=== PATIENT | female | born 1965 | race Caucasian/White ===

== ENCOUNTER → 2020-03-13 15:34 | Outpatient (BNVA) | payer BC, SELFPAY | PROVIDERS: Family Provider Nurse Practitioner Family; PCP Registered Nurse; Visit Provider Podiatrist Public Medicine | DX: Z20.828 Contact with and (suspected) exposure to other viral communicable diseases (principal) | CPT/HCPCS: 87635 ==

== ENCOUNTER → 2020-05-16 09:24 | Outpatient (BNVA) | payer SELFPAY | PROVIDERS: Family Provider Nurse Practitioner Family; PCP Registered Nurse; Visit Provider Registered Nurse | DX: R10.9 Unspecified abdominal pain (principal); N39.0 Urinary tract infection, site not specified; A49.9 Bacterial infection, unspecified; B37.3 Candidiasis of vulva and vagina | CPT/HCPCS: 81000 ==

== ENCOUNTER → 2020-05-19 11:29 | Outpatient (BNVA) | payer OTHER, SELFPAY | PROVIDERS: Family Provider Nurse Practitioner Family; PCP Registered Nurse; Visit Provider Registered Nurse | DX: N39.0 Urinary tract infection, site not specified (principal); A49.9 Bacterial infection, unspecified | CPT/HCPCS: 81000; 87086 ==

== ENCOUNTER 2020-06-28 10:53 | Outpatient (CLI) | payer OTHER, SELFPAY ==
--- NOTE | 2020-06-28 11:00 | XR_ITS ---
WS: [id number] KUB, 06/28/2020 Clinical Data: N30.21 - Other chronic cystitis with hematuria Comparison: None. Findings: No abnormal intraabdominal masses or calcifications are seen. There is no dilatated small bowel or ev idence of obstruction. There is a moderate amount of fecal material throughout the ascending and transverse colons. XR/XR KUB [id number] Impression: Moderate amount of fecal material in the colon.
== END 2020-06-28 10:54 | disposition home or self-care (01) ==
LOC: RAD 11:00
PROVIDERS: PCP Registered Nurse; Visit Provider Registered Nurse
DX: N30.21 Other chronic cystitis with hematuria (principal)
CPT/HCPCS: 74018; 81000; 87086; 88112

== ENCOUNTER → 2020-07-24 13:49 | Outpatient (BNVA) | payer OTHER, SELFPAY | PROVIDERS: PCP Registered Nurse; Referring Provider Registered Nurse; Visit Provider Nurse Practitioner Family | DX: A49.9 Bacterial infection, unspecified (principal); N30.20 Other chronic cystitis without hematuria | CPT/HCPCS: 81003 ==

== ENCOUNTER → 2020-08-29 16:05 | Outpatient (BNVA) | payer OTHER, SELFPAY | PROVIDERS: PCP Registered Nurse; Visit Provider Urology | DX: N30.20 Other chronic cystitis without hematuria (principal) | CPT/HCPCS: 87086 ==

== ENCOUNTER → 2020-09-05 14:29 | Outpatient (BNVA) | payer OTHER, SELFPAY | PROVIDERS: PCP Registered Nurse; Visit Provider Urology | DX: N30.20 Other chronic cystitis without hematuria (principal) | CPT/HCPCS: 81003 ==

== ENCOUNTER → 2020-11-07 12:48 | Outpatient (BNVA) | payer OTHER, SELFPAY | PROVIDERS: PCP Registered Nurse; Visit Provider Urology | DX: N30.20 Other chronic cystitis without hematuria (principal) | CPT/HCPCS: 81003 ==

== ENCOUNTER → 2021-02-12 10:06 | Outpatient (BNVA) | payer OTHER, SELFPAY | PROVIDERS: PCP Registered Nurse; Visit Provider Urology | DX: N30.20 Other chronic cystitis without hematuria (principal) | CPT/HCPCS: 81003 ==

== ENCOUNTER → 2021-07-20 09:17 | Outpatient (BNVA) | payer OTHER, SELFPAY | PROVIDERS: PCP Registered Nurse; Visit Provider Nurse Practitioner Family | DX: N39.0 Urinary tract infection, site not specified (principal); A49.9 Bacterial infection, unspecified | CPT/HCPCS: 81003 ==

== ENCOUNTER 2021-09-04 14:15 | Outpatient (CLI) | payer OTHER, SELFPAY ==
--- NOTE | 2021-09-04 14:22 | XRR_ITS ---
PROCEDURE INFORMATION: Exam: XR Lumbosacral Spine Exam date and time: 09/04/2021 2:28 PM Age: 56 years old Clinical indication: Low back pain; Additional info: M54.50 - low back pain, unspecified TECHNIQUE: Imaging protocol: XR of the lumbosacral spine. Views: 2 or 3 views. COMPARISON: CR XR KUB [id number] 06/28/2020 11:15 AM FINDINGS: Bones/joints: Multilevel degenerative disc disease most prominent at L4-L5. Facet arthropathy at L5-S1. Vertebral body heights are maintained. Soft tissues: Unremarkable. Vasculature: Vascular calcifications. XR/XR lumbar spine 2-3V* [id number] IMPRESSION: No acute abnormality.
== END 2021-09-04 14:16 | disposition home or self-care (01) ==
LOC: RAD 14:17
PROVIDERS: PCP Registered Nurse; Visit Provider Registered Nurse
DX: M54.50 Low back pain, unspecified (principal); S20.369A Insect bite (nonvenomous) of unspecified front wall of thorax, initial encounter; W57.XXXA Bitten or stung by nonvenomous insect and other nonvenomous arthropods, initial encounter
CPT/HCPCS: 72100; 85025; 86618; 86666; 86757

== ENCOUNTER → 2021-11-15 09:53 | Outpatient (BNVA) | payer OTHER, SELFPAY | PROVIDERS: PCP Registered Nurse; Visit Provider Nurse Practitioner Family | DX: W57.XXXA Bitten or stung by nonvenomous insect and other nonvenomous arthropods, initial encounter (principal); R50.9 Fever, unspecified | CPT/HCPCS: 80048; 84443; 85025; 85651; 86140; 86618; 86666; 86757 ==

== ENCOUNTER → 2021-11-22 13:40 | Outpatient (BNVA) | payer OTHER, SELFPAY | PROVIDERS: PCP Registered Nurse; Visit Provider Nurse Practitioner Family | DX: N30.20 Other chronic cystitis without hematuria (principal) | CPT/HCPCS: 81003 ==

== ENCOUNTER → 2022-03-04 15:20 | Outpatient (BNVA) | payer OTHER, SELFPAY | PROVIDERS: PCP Registered Nurse; Visit Provider Urology | DX: N30.20 Other chronic cystitis without hematuria (principal) | CPT/HCPCS: 81003 ==

== ENCOUNTER → 2022-03-11 08:26 | Outpatient (BNVA) | payer OTHER, SELFPAY | PROVIDERS: PCP Registered Nurse; Visit Provider Registered Nurse | DX: R68.89 Other general symptoms and signs (principal) | CPT/HCPCS: 87400 ==

== ENCOUNTER → 2022-09-02 15:14 | Outpatient (BNVA) | payer OTHER, SELFPAY | PROVIDERS: PCP Registered Nurse; Visit Provider Urology | DX: N30.20 Other chronic cystitis without hematuria (principal) | CPT/HCPCS: 81003 ==

== ENCOUNTER → 2022-10-10 10:15 | Outpatient (BNVA) | payer OTHER, SELFPAY | PROVIDERS: PCP Registered Nurse; Visit Provider Family Medicine | DX: N30.20 Other chronic cystitis without hematuria (principal); Z76.89 Persons encountering health services in other specified circumstances | CPT/HCPCS: 80053; 80061; 81003; 85025 ==

== ENCOUNTER → 2022-11-06 10:45 | Outpatient (BNVA) | payer OTHER, SELFPAY | PROVIDERS: PCP Family Medicine; Visit Provider Nurse Practitioner Women's Health | DX: Z12.4 Encounter for screening for malignant neoplasm of cervix (principal) | CPT/HCPCS: 87624 ==

== ENCOUNTER 2023-12-23 10:42 | Outpatient (CLI) | payer OTHER, SELFPAY ==
--- NOTE | 2023-12-23 10:44 | MM_ITS ---
WS: [id number] BILATERAL 3D TOMOSYNTHESIS DIGITAL SCREENING MAMMOGRAPHY WITH CAD CLINICAL INFORMATION: SCREENING HISTORY: Screening mammogram. No current complaints. COMPARISON: 2022 TECHNIQUE: Bilateral CC and MLO views. FINDINGS: Scattered fibroglandular densities bilaterally. No suspicious focal mass, asymmetry, calcifications, or architectural distortion. No evidence of malignancy. Bilateral breast implants appear intact. MM/MM scr tomosynthesis [id number] IMPRESSION: DENSITY: There are scattered areas of fibroglandular density. BI-RADS: 2 - Benign. FOLLOW UP: 1 Year Follow-up Recommend return to annual screening mammography.
== END 2023-12-23 10:43 | disposition home or self-care (01) ==
LOC: RAD 10:43
PROVIDERS: PCP Family Medicine; Visit Provider Nurse Practitioner Women's Health
DX: Z12.31 Encounter for screening mammogram for malignant neoplasm of breast (principal); R92.323 Mammographic fibroglandular density, bilateral breasts; Z98.82 Breast implant status
CPT/HCPCS: 77063; 77067

== ENCOUNTER 2024-01-05 17:07 | Emergency (ER) | payer OTHER, SELFPAY ==
[2024-01-05 17:14] VITALS: BP 157/94; PULSE 71; RESP 20; TEMP 36.6; O2SAT 100; BMI 26.6
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
[2024-01-05 17:33] LABS: Basophils % 0.6 %; Eosinophils # 0.1 10^3/uL (0.0-0.8); Eosinophils % 1.1 %; Hematocrit 45.9 % (36-47); Lymphocytes # 1.8 10^3/uL (0.8-4.8); Lymphocytes % 24.2 %; Mean Corpuscular HGB Conc 33.1 g/dL (30-55); Mean Corpuscular Hemoglobin 30.2 pg (27-33); Mean Corpuscular Volume 91.3 fl (85-98); Mean Platelet Volume 11.2 fL (7.4-10.4); Monocytes # 0.5 10^3/uL (0.2-0.9); Monocytes % 7.1 %; Neutrophils # 4.82 10^3/uL (1.8-7.7); Neutrophils % 66.7 %; Nucleated Red Blood Cells % 0 %; Platelet Count 253 10^3/cmm (157-399); Red Blood Count 5.03 10^6/uL (3.85-5.65); Red Cell Distribution Width 12.3 % (12.1-15.1); White Blood Count 7.22 10^3/uL (3.29-11.43)
[2024-01-05 17:55] LABS: Alanine Aminotransferase 15 U/L (0-33); Albumin Level 4.2 g/dL (3.5-5.2); Alkaline Phosphatase 94 U/L (35-105); Anion Gap 13.7 (5-19); Aspartate Amino Transferase 15 U/L (0-32); Blood Urea Nitrogen 15 mg/dL (6-20); Calcium 8.8 mg/dL (8.5-10.5); Carbon Dioxide 25 mmol/L (22-29); Chloride 103 mmol/L (98-107); Creatinine Clr Calc Pharmacy 77.8519; Globulin 2.7 g/dL (1.3-4.6); Glomerular Filtration Rate 64.3 mL/min (90-130); Glucose 134 mg/dL (65-115); Osmolality Calculated 287 mOsm/kg (285-295); Potassium 4.7 mmol/L (3.5-5.1); Sodium 137 mmol/L (136-145); Total Bilirubin 0.4 mg/dL (0.15-1.2); Total Protein 6.9 g/dL (6.6-8.7)
[2024-01-05 17:56] LABS: Lactic Sepsis W/Reflex 1.8 mmol/L (0.5-2.2)
[2024-01-05] MEDS: iohexol 350 mg/mL 500 mL Btl (per mL) IV (18:06)
[2024-01-05] MEDS: orphenadrine 30 mg/mL Inj 2 mL 60 MG IVP (18:13)
[2024-01-05] MEDS: ondansetron 2 mg/ML SDV 2 mL 8 MG IVP (18:14)
[2024-01-05] MEDS: ketorolac 30 mg/mL INJ IVP (18:17)
[2024-01-05 19:30] VITALS: BP 134/74; PULSE 68; O2SAT 96
--- NOTE | 2024-01-05 19:32 | NUR.SHIFT ---
C-collar removed per Dr. Grover.
[2024-01-05] MEDS: HYDROcodone-acetaminophen 5-325 mg Tablet 2 TAB PO (19:56)
[2024-01-05] MEDS: ondansetron 4 MG Tablet 8 MG PO (19:57)
[2024-01-05 19:58] VITALS: RESP 18
[2024-01-05] MEDS: HYDROmorphone 1 mg/mL INJ 1 mL IVP (19:58)
[2024-01-05 20:17] VITALS: BP 123/65; PULSE 71; O2SAT 96
--- NOTE | 2024-01-05 20:18 | PC.NURSE ---
Pt sent home with 2 hydrocodone 5-325 and 2 tabs of zofran per Dr. Grover.
== END 2024-01-05 20:21 | disposition home or self-care (01) ==
PROVIDERS: Emergency Provider Emergency Medicine; PCP Family Medicine
DX: S16.1XXA Strain of muscle, fascia and tendon at neck level, initial encounter (principal); S39.012A Strain of muscle, fascia and tendon of lower back, initial encounter; Z87.891 Personal history of nicotine dependence; V89.2XXA Person injured in unspecified motor-vehicle accident, traffic, initial encounter
CPT/HCPCS: 70450; 71260; 72125; 72128; 72131; 74177; 80053; 83605; 85025; 96374; 96375; 99285; J1170; J1885; J2360; J2405; Q0162

== ENCOUNTER → 2024-05-05 11:06 | Outpatient (BNVA) | payer OTHER, SELFPAY | PROVIDERS: PCP Family Medicine; Visit Provider Registered Nurse | DX: J11.1 Influenza due to unidentified influenza virus with other respiratory manifestations (principal); J01.40 Acute pansinusitis, unspecified | CPT/HCPCS: 87400 ==

== ENCOUNTER → 2024-05-12 14:50 | Outpatient (BNVA) | payer OTHER, SELFPAY | PROVIDERS: PCP Family Medicine; Visit Provider Nurse Practitioner Women's Health | DX: E28.319 Asymptomatic premature menopause (principal) | CPT/HCPCS: 82306 ==

== ENCOUNTER 2024-05-25 12:56 | Outpatient (CLI) | payer OTHER, SELFPAY ==
--- NOTE | 2024-05-25 14:00 | XR_ITS ---
WS: [id number] SCREENING DEXA SCAN [employer] CLINICAL INFORMATION: E28.319 - Asymptomatic premature menopause COMPARISON: None. FINDINGS: The L1-L4 bone mineral density measures 1.027 g/cm2. This corresponds to a T score score of -1.3 and Z score of -0.7. Left femoral neck bone mineral density measures 0.919 g/cm2. This corresponds to a T score of -0.7 and Z score of -0.2. Right femoral neck bone mineral density measures 0.870 g/cm2. This corresponds to a T score -1.1of and Z score of -0.6. Mean femoral neck bone mineral density measures 0.895 g/cm2. This corresponds to a T score of -0.9 and Z score of -0.4. XR/XR DEXA axial skeleton* [id number] IMPRESSION: Osteopenia lumbar spine. Osteopenia femoral necks. Patient's FRAX calculated 10 year probability for major osteoporotic fracture i s 9.6% and osteoporotic hip fracture is 1.3%.
== END 2024-05-25 12:57 | disposition home or self-care (01) ==
PROVIDERS: PCP Family Medicine; Visit Provider Nurse Practitioner Women's Health
DX: E28.319 Asymptomatic premature menopause (principal); Z13.820 Encounter for screening for osteoporosis; M85.89 Other specified disorders of bone density and structure, multiple sites
CPT/HCPCS: 77080

== ENCOUNTER → 2024-06-07 12:41 | Outpatient (BNVA) | payer OTHER, SELFPAY | PROVIDERS: PCP Family Medicine; Visit Provider Nurse Practitioner Women's Health | DX: R39.89 Other symptoms and signs involving the genitourinary system (principal) | CPT/HCPCS: 81000; 87086 ==

== ENCOUNTER → 2024-07-02 10:30 | Outpatient (BNVA) | payer OTHER, SELFPAY | PROVIDERS: PCP Family Medicine; Visit Provider Nurse Practitioner Women's Health | DX: M85.80 Other specified disorders of bone density and structure, unspecified site (principal); Z78.0 Asymptomatic menopausal state; R25.2 Cramp and spasm | CPT/HCPCS: 80053; 82670 ==

== ENCOUNTER → 2024-07-15 09:23 | Outpatient (BNVA) | payer OTHER, SELFPAY | PROVIDERS: PCP Family Medicine; Visit Provider Nurse Practitioner Women's Health | DX: E55.9 Vitamin D deficiency, unspecified (principal) | CPT/HCPCS: 82306 ==

== ENCOUNTER 2024-12-14 15:57 | Outpatient (CLI) | payer OTHER, SELFPAY ==
--- NOTE | 2024-12-14 16:02 | XR_ITS ---
WS: [id number] XR lumbar spine 2-3V* [id number] REASON FOR EXAM: M54.50 - Low back pain, unspecified FINDINGS: Moderate rotatory dextroscoliosis. Normal lordosis. No significant compression deformity or focal lesion of the lumbar vertebrae. Mild/moderate narrowing of the L4-L5 disc space with moderate endplate sclerosis and osteophytosis. No spondylolysis. No significant spondylolisthesis. XR/XR lumbar spine 2-3V* [id number] IMPRESSION: Lumbar degenerative spondylosis as above.
== END 2024-12-14 15:58 | disposition home or self-care (01) ==
PROVIDERS: PCP Registered Nurse; Visit Provider Registered Nurse
DX: M54.50 Low back pain, unspecified (principal); M51.369 Other intervertebral disc degeneration, lumbar region without mention of lumbar back pain or lower extremity pain; M47.816 Spondylosis without myelopathy or radiculopathy, lumbar region
CPT/HCPCS: 72100

== ENCOUNTER 2025-01-05 07:23 | Outpatient (CLI) | payer OTHER, SELFPAY ==
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
== END 2025-01-05 07:24 | disposition home or self-care (01) ==
PROVIDERS: PCP Registered Nurse; Visit Provider Registered Nurse
DX: S80.01XA Contusion of right knee, initial encounter (principal); X58.XXXA Exposure to other specified factors, initial encounter
CPT/HCPCS: 73562

== ENCOUNTER 2025-03-03 06:55 | Outpatient (CLI) | payer SELFPAY ==
--- NOTE | 2025-03-03 07:15 | MR_ITS ---
WS: [id number] MRI RIGHT KNEE HISTORY: M25.561 - Pain in right knee COMPARISON: Radiograph 01/05/2025 Anterior cruciate ligament: Intact. Posterior cruciate ligament: Intact. Medial collateral ligament: Intact. Posterior lateral corner structures: Intact. Medial menisci: Intact. Normal signal, size and shape. Mild intrasubstance degeneration in the posterior horn but no extension to the articular surfaces. Lateral meniscus: Intact. Normal signal, size and shape. Extensor mechanism: Distal quadriceps tendon and patellar tendons are intact. Fluid and soft tissue: No joint effusion. No Godinez's cyst. There is a small amount of edema along the medial patellar retinaculum. The retinaculum appears intact. Osseous and articular structures: Patellofemoral compartment: No significant narrowing of the patellofemoral joint space. No marrow edema. Medial compartment: Very mild narrowing of the medial compartment. No marrow edema. Cartilage is preserved. Lateral compartment: Mild narrowing with preserved cartilage. No marrow edema. MR/MR knee RT wo con* [id number] IMPRESSION: 1. No meniscal or ACL tear. 2. Normal MCL. 3. There is edema extending along the medial patellar retinaculum. The retinac ulum appears intact 4. No significant joint effusion.
== END 2025-03-03 06:56 | disposition home or self-care (01) ==
LOC: RAD 06:57
PROVIDERS: PCP Registered Nurse; Visit Provider Registered Nurse
DX: M25.561 Pain in right knee (principal); M23.91 Unspecified internal derangement of right knee
CPT/HCPCS: 73721

== ENCOUNTER → 2025-03-15 15:38 | Outpatient (BNVA) | payer OTHER, SELFPAY | PROVIDERS: PCP Registered Nurse; Visit Provider Nurse Practitioner Women's Health | DX: N84.1 Polyp of cervix uteri (principal) | CPT/HCPCS: 88305 ==

== ENCOUNTER 2025-03-21 09:09 | Outpatient (CLI) | payer OTHER, SELFPAY ==
--- NOTE | 2025-03-21 09:16 | MM_ITS ---
WS: [id number] Bilateral screening 3D tomosynthesis digital mammogram, 03/21/2025 9:29 AM Clinical Data: SCREENING Comparison: 12/23/2023, 11/08/2022, 04/28/2014, 09/24/2007, 04/15/2006. Findings: No spiculated masses or clustered calcifications are seen. There are no secondary signs of carcinoma. The augmentation mammoplasty implants remain intact. MM/MM scr BI tomosynthesis [id number] Impression: Negative bilateral mammogram unchanged. Recommend annual screening mammograms. BIRADS: 2 - Benign. FOLLOW UP: 1 Year Follow-up DENSITY: There are scattered areas of fibroglandular density. The CAD carver and checkerer specials was used
== END 2025-03-21 09:10 | disposition home or self-care (01) ==
LOC: RAD 09:11
PROVIDERS: Absent Provider Nurse Practitioner Women's Health; PCP Registered Nurse; Visit Provider Registered Nurse
DX: Z12.31 Encounter for screening mammogram for malignant neoplasm of breast (principal); R92.323 Mammographic fibroglandular density, bilateral breasts
CPT/HCPCS: 77063; 77067